=== PATIENT | female | born 1960 | race Caucasian/White ===

== ENCOUNTER 2020-08-29 06:50 | Emergency (ER) | payer MEDICARE, OTHER ==
[~2020-08-29] VITALS: Ht 167.6 cm; Wt 129.3 kg
[2020-08-29 07:10] VITALS: BP 199/86
[2020-08-29] MEDS ORDERED: BACLOFEN5 MG PO (07:17)
[2020-08-29] MEDS ORDERED: PERCOCET 10-321 EAC1 PO ×2 (07:17→07:41)
[2020-08-29] MEDS ORDERED: BELBUCA450 MCG BUCCAL (07:17)
[2020-08-29] MEDS ORDERED: MYRBETRIQ25 MG PO (07:18)
[2020-08-29] MEDS ORDERED: CELEBREX 200 M200 M1 PO (07:18)
[2020-08-29] MEDS ORDERED: PRISTIQ50 MG PO (07:18)
[2020-08-29] MEDS ORDERED: MIRAPEX1 MG PO (07:19)
[2020-08-29] MEDS ORDERED: ASA81BEC PO (07:19)
[2020-08-29] MEDS ORDERED: PREDNISONE 5 MG5 MG PO (07:19)
== END 2020-08-29 07:45 | disposition home or self-care (01) ==
LOC: M.ERS 06:50
DX: G89.29 Other chronic pain (principal); Z76.0 Encounter for issue of repeat prescription; M79.7 Fibromyalgia; M19.90 Unspecified osteoarthritis, unspecified site; G25.81 Restless legs syndrome; F17.210 Nicotine dependence, cigarettes, uncomplicated; Z88.8 Allergy status to other drugs, medicaments and biological substances

== ENCOUNTER → 2020-09-06 | Outpatient (CLI) | payer MEDICARE, OTHER ==
[~2020-09-06] MED LIST: ASA81BEC PO; BACLOFEN5 MG PO; BELBUCA450 MCG BUCCAL; CELEBREX 200 M200 M1 PO; MIRAPEX1 MG PO; MYRBETRIQ25 MG PO; PERCOCET 10-321 EAC1 PO; PREDNISONE 5 MG5 MG PO; PRISTIQ50 MG PO; TYLENOL EXTRA500 MG PO
== END ==
LOC: M.PC 11:01
PROVIDERS: ATTEND Anesthesiology Pain Medicine
DX: G89.29 Other chronic pain (principal); J45.909 Unspecified asthma, uncomplicated; M79.7 Fibromyalgia; M35.3 Polymyalgia rheumatica; M19.90 Unspecified osteoarthritis, unspecified site; M47.812 Spondylosis without myelopathy or radiculopathy, cervical region; N32.81 Overactive bladder; G25.81 Restless legs syndrome; F32.9 Major depressive disorder, single episode, unspecified

== ENCOUNTER 2020-09-13 12:08 | Emergency (ER) | payer MEDICARE, OTHER ==
[~2020-09-13] VITALS: Ht 167.6 cm; Wt 117.5 kg
[2020-09-13 12:22] VITALS: BP 153/78
--- NOTE | 2020-09-13 12:37 | EKG ---
[place] [address] ELECTROCARDIOGRAM REPORT Name: ARNEL LOONEY Room: [facility]#: [id number] Admission: 09/13/20 Attend Phys: Discharge: Date of : 64 Date of Service: 09/13/20 1225 Report #: [id number] THIS REPORT FOR: //name// [facility] ED Test Date: 2020-09-13 Test Time: 12:25:23 Pat Name: ARNEL LOONEY Department: Room: Gender: Diet Assistant: JAG : 1960 Requested By: Robert Ambrose Order Number: [id number] MD: Willian Crisostomo Measurements Intervals [place] Rate: 64 P: 36 MS: 177 QRS: 59 QRSD: 131 T: 86 QT: 415 QTc: 428 Interpretive Statements Sinus rhythm IVCD, consider atypical RBBB No previous ECG available for comparison Electronically Signed On 09-13-2020 12:37:09 CDT by Willian Crisostomo [email or web address] <ELECTRONICALLY SIGNED> By: Willian Crisostomo MD, [facility] 09/13/20 1237 1225 1225 Willian Crisostomo MD, FAC /EPI
[2020-09-13 12:53] LABS: ABSOLUTE LYMPHOCYTES 0.8 thou/uL (0.8-5.3); ABSOLUTE MONOCYTES 0.3 thou/uL (0.0-1.2); ABSOLUTE NEUTROPHILS 4.7 thou/uL (1.6-8.1); BASOPHILS 0.7 %; EOSINOPHILS 0.4 %; HEMATOCRIT 38.9 % (37.0-47.0); HEMOGLOBIN 12.5 gm/dL (12.0-15.0); LYMPHOCYTES 13.3 %; MCH 24.5 pg (26.0-34.0); MCHC 32.1 g/dL (28.0-37.0); MCV 76.4 fL (80.0-100.0); MONOCYTES 5.8 %; MPV 7.5 fl. (7.2-11.1); NUCLEATED RBCS 0 /100WBC; PLATELET COUNT* 236 thou/uL (150-400); POLYS 79.8 %; RDW-CV 18.1 % (10.5-14.5); WBC 5.9 thou/uL (4.0-11.0)
[2020-09-13 13:02] LABS: CALCIUM 8.6 mg/dL (8.5-10.1); CREATININE 1.3 mg/dL (0.6-1.3); POTASSIUM 3.6 mmol/L (3.5-5.1)
[2020-09-13 13:19] LABS: ALBUMIN 4.1 g/dL (3.4-5.0); TOTAL BILIRUBIN 0.6 mg/dL (<0.1-1.0); TOTAL PROTEIN 7.8 g/dL (6.4-8.2)
== END 2020-09-13 14:44 | disposition home or self-care (01) ==
LOC: M.ERS 12:08
PROVIDERS: Family Medicine
DX: E86.0 Dehydration (principal); F11.23 Opioid dependence with withdrawal; J45.909 Unspecified asthma, uncomplicated; G89.29 Other chronic pain; M79.7 Fibromyalgia; M19.90 Unspecified osteoarthritis, unspecified site; Z98.890 Other specified postprocedural states; Z90.49 Acquired absence of other specified parts of digestive tract; Z88.8 Allergy status to other drugs, medicaments and biological substances